=== PATIENT | male | born 1985 | race Caucasian/White ===

== ENCOUNTER 2024-03-06 12:16 | Emergency (ER) | payer SELFPAY ==
[2024-03-06 12:43] VITALS: BP 102/64; PULSE 83; RESP 16; TEMP 36.6; O2SAT 97
--- NOTE | 2024-03-06 15:32 | PC.NURSE ---
pt to go elsewhere, thinks it is too busy here
== END 2024-03-06 16:06 | disposition left against medical advice (07) ==
LOC: ANHED 15:35
DX: R11.2 Nausea with vomiting, unspecified (principal)
CPT/HCPCS: 99199